=== PATIENT | female | born 1980 ===

== ENCOUNTER 2021-06-24 05:55 | Day surgery (SDC) | payer OTHER ==
[~2021-06-24 05:55] MED LIST: BONTRIL; INTEGRA CAPSUL1 EACH PO; [UNRECOGNIZED DRUG - REMARK]
== END 2021-06-24 14:10 | disposition home or self-care (01) ==
LOC: CIR.AMB 05:55
PROVIDERS: ATTEND Obstetrics & Gynecology Maternal & Fetal Medicine
DX: N84.0 Polyp of corpus uteri (principal); Z91.013 Allergy to seafood; J45.909 Unspecified asthma, uncomplicated; F41.9 Anxiety disorder, unspecified